=== PATIENT | female | born 1950 | race Caucasian/White ===

== ENCOUNTER 2017-05-18 12:30 | Outpatient (RCR) | payer OTHER, MEDICARE | END 2017-06-03 09:15 | disposition home or self-care (01) | LOC: WSPT 12:30 | DX: M17.0 Bilateral primary osteoarthritis of knee (principal) ==

== ENCOUNTER → 2018-06-09 | Outpatient (CLI) | payer OTHER | LOC: MC.RAD 08:01 | DX: Z12.31 Encounter for screening mammogram for malignant neoplasm of breast (principal) ==

== ENCOUNTER → 2018-10-27 | Outpatient (CLI) | payer OTHER | LOC: COL.VAS 09:27 | DX: Z13.6 Encounter for screening for cardiovascular disorders (principal); M79.662 Pain in left lower leg ==

== ENCOUNTER 2019-08-24 11:15 | Outpatient (RCR) | payer OTHER | END 2019-09-08 13:08 | disposition home or self-care (01) | LOC: WSPT 11:15 | DX: I89.0 Lymphedema, not elsewhere classified (principal) ==

== ENCOUNTER → 2021-11-26 | Outpatient (CLI) | payer OTHER | LOC: MC.RAD 07:38 | DX: Z12.31 Encounter for screening mammogram for malignant neoplasm of breast (principal) ==

== ENCOUNTER → 2024-01-05 | Outpatient (RCR) | payer OTHER | END | disposition home or self-care (01) | LOC: WSPT | DX: I89.0 Lymphedema, not elsewhere classified (principal) ==

== ENCOUNTER 2024-02-03 10:30 | Outpatient (RCR) | payer OTHER | END 2024-02-05 | disposition home or self-care (01) | LOC: WSPT | DX: I89.0 Lymphedema, not elsewhere classified (principal); R42 Dizziness and giddiness ==

== ENCOUNTER 2024-02-15 10:28 | Outpatient (RCR) | payer OTHER | END 2024-03-06 | disposition home or self-care (01) | LOC: WSPT | DX: I89.0 Lymphedema, not elsewhere classified (principal); R42 Dizziness and giddiness ==